=== PATIENT | female | born 1985 | race Hispanic/Latino ===

== ENCOUNTER 2017-12-21 05:19 | Emergency (ER) | payer OTHER ==
[2017-12-21] MEDS ORDERED: Sodium Chloride 0.9% 1,000 ML IV STA (05:36)
[2017-12-21] MEDS ORDERED: Morphine 4 MG/ML VIAL ONE (05:40)
[2017-12-21 06:17] LABS: ALB/GLOB RATIO 1.2 (1.0-2.1); ALBUMIN 4.4 g/dL (3.5-5.0); ALT/SGPT 53 U/L (9-52); AST/SGOT 30 U/L (14-36); BLOOD UREA NITROGEN 10 mg/dl (7-17); GFR AFRICAN-AMERICAN > 60; GFR NON-AFRICAN AMERICAN > 60
[2017-12-21 06:28] LABS: INR 1.1 (0.9-1.2); PARTIAL THROMBOPLASTIN TIME 29.5 Seconds (25.6-37.1); PROTHROMBIN TIME 11.9 Seconds (9.8-13.1)
[2017-12-21 06:36] LABS: BASO % 0.4 % (0.0-2.0); EOS % 0.1 % (0.0-4.0); HEMOGLOBIN 13.2 g/dL (12.0-16.0); LYMPH # 0.9 K/uL (1.0-4.3); LYMPH % 9.4 % (20.0-40.0); MEAN CELL VOLUME 87.1 fl (81.0-99.0); MEAN CORPUSCULAR HEMOGLOBIN 29.7 pg (27.0-31.0); MEAN CORPUSCULAR HGB CONC 34.1 g/dL (33.0-37.0); MEAN PLATELET VOLUME 8.4 fl (7.2-11.7); MONO # 0.3 K/uL (0.0-0.8); MONO % 3.3 % (0.0-10.0); NEUT # 8.7 K/uL (1.8-7.0); NEUT % 86.8 % (50.0-75.0); PLATELET COUNT 262 K/uL (130-400); RBC 4.45 Mil/uL (3.80-5.20); RED CELL DISTRIBUTION WIDTH 13.2 % (11.5-14.5)
--- NOTE | 2017-12-21 07:09 | ED PDOC ---
HPI: Female Pain Time Seen by Provider: 12/21/17 05:31 Chief Complaint (Nursing): Abdominal Pain Chief Complaint (Provider): Abdominal Pain History Per: Patient History/Exam Limitations: no limitations Onset/Duration Of Symptoms: Hrs (x 7) Additional Complaint(s): 32 year old female with and AGA 11 weeks presents to the ED complaining of vaginal bleeding and abdominal pain associated with nausea for 7 hours. Patient states she was diagnosed yesterday with demise and started on cytotec. She reports insertion of first dose at 2300. Patient denies any vomiting, diarrhea, fever, chest pain or shortness of breath. Past Medical History Reviewed: Historical Data, Nursing Documentation, Vital Signs Vital Signs: Last Vital Signs Temp 98.3 F 12/21/17 05:30 Pulse 72 12/21/17 05:30 Resp 18 12/21/17 05:30 BP 124/75 12/21/17 05:30 Pulse Ox 95 12/21/17 05:30 - Medical History PMH: No Chronic Diseases - Surgical History Surgical History: No Surg Hx - Family History Family History: States: Unknown Family Hx - Social History Current smoker - smoking cessation education provided: No Alcohol: None Drugs: Denies - Home Medications Home Medications: Ambulatory Orders Medication Instructions Recorded Acetaminophen with Codeine 1 tab PO Q6H PRN #10 tab 12/21/17 [Tylenol with Codeine No. 3 300 mg-30 mg] Ibuprofen [Motrin] 600 mg PO Q6H PRN #20 tab 12/21/17 - Allergies Allergies/Adverse Reactions: Allergies Allergy/AdvReac Type Severity Reaction Status Date / Time No Known Allergies Allergy Verified 12/21/17 05:29 Review of Systems ROS Statement: Except As Marked, All Systems Reviewed And Found Negative Constitutional: Negative for: Fever Cardiovascular: Negative for: Chest Pain Respiratory: Negative for: Cough Gastrointestinal: Positive for: Nausea, Abdominal Pain. Negative for: Vomiting , Diarrhea Genitourinary Female: Positive for: Vaginal Bleeding Physical Exam - Reviewed Nursing Documentation Reviewed: Yes Vital Signs Reviewed: Yes - Physical Exam Appears: Positive for: Uncomfortable Skin: Positive for: Normal Color, Warm, Dry Eye Exam: Positive for: Normal appearance, EOMI, PERRL ENT: Positive for: Normal ENT Inspection Neck: Positive for: Normal, Supple Cardiovascular/Chest: Positive for: Regular Rate, Rhythm. Negative for: Murmur Respiratory: Positive for: Normal Breath Sounds. Negative for: Respiratory Distress Gastrointestinal/Abdominal: Positive for: Normal Exam, Soft. Negative for: Tenderness Back: Positive for: Normal Inspection. Negative for: L CVA Tenderness, R CVA Tenderness Extremity: Positive for: Normal ROM Neurologic/Psych: Positive for: Alert, Oriented - Laboratory Results Result Diagrams: 12/21/17 05:45 12/21/17 05:45 - ECG O2 Sat by Pulse Oximetry: 95 (RA) Pulse Ox Interpretation: Normal Medical Decision Making Medical Decision Making: Initial Impression: 32 year old female with sever cramping and bleeding and recent cytotec. Initial Plan: --ABO/RH Type --B-HCG --CMP --CBC --PTT --Prothrombin Time --Toradol 30 mg --Morphine 4 mg --NaCl 1,000 ml IV --Zofran 4 mg --Urinalysis --Transvaginal US Time:0647 Patient is signed out to Dr. Richter. Scribe Attestation: Documented by oLri Santana, acting as a scribe for Raleigh Alcazar MD. Provider Scribe Attestation: All medical record entries made by the Scribe were at my direction and personally dictated by me. I have reviewed the chart and agree that the record accurately reflects my personal performance of the history, physical exam, medical decision making, and the department course for this patient. I have also personally directed, reviewed, and agree with the discharge instructions and disposition. Disposition - Clinical Impression Clinical Impression: Abdominal cramps - Disposition Referrals: Mary Kay Garcai Caraway [Outside] Disposition Time: 07:47 Condition: IMPROVED Additional Instructions: FOLLOW-UP WITH OB-GLASS CALIBRATOR WITHIN 2 DAYS FOR REEVALUATION. Prescriptions: Acetaminophen with Codeine [Tylenol with Codeine No. 3 300 mg-30 mg] 1 tab PO Q6H PRN #10 tab PRN Reason: Pain, Severe (8-10) Ibuprofen [Motrin] 600 mg PO Q6H PRN #20 tab PRN Reason: Pain, Moderate (4-7) Instructions: Acute Abdomen (Belly Pain), Misoprostol Forms: [employer] (Hungarian) Patient Signed Over To: Elana Richter
--- NOTE | 2017-12-21 07:25 | ED PDOC ---
- Laboratory Results Result Diagrams: 12/21/17 05:45 12/21/17 05:45 - ECG O2 Sat by Pulse Oximetry: 95 (RA) - Progress Re-evaluation Time: 12:30 Condition: Improved - Physician Consult Information Time Consulting Physican Contacted: 12:46 Physician Contacted: Laura Dash Outcome Of Conversation: Will evaluate patient. Pt can be discharged home. Disposition - Clinical Impression Clinical Impression: Abdominal cramps - POA Present On Arrival: None - Disposition Referrals: Mary Kay Weinstein [Outside] Disposition: Routine/Home Disposition Time: 13:20 Condition: IMPROVED Additional Instructions: FOLLOW-UP WITH OB-TAPPER SUPERVISOR WITHIN 2 DAYS FOR REEVALUATION. Prescriptions: Acetaminophen with Codeine [Tylenol with Codeine No. 3 300 mg-30 mg] 1 tab PO Q6H PRN #10 tab PRN Reason: Pain, Severe (8-10) Ibuprofen [Motrin] 600 mg PO Q6H PRN #20 tab PRN Reason: Pain, Moderate (4-7) Instructions: Acute Abdomen (Belly Pain), Misoprostol Forms: [id number] (Korean) Addendum Addendum: 12/21/17 07:00 Pt signed out [address] Dr[address] Alcazar pending ultrasound.
[2017-12-21 07:40] LABS: BANDS 1 % (0-2); LYMPHOCYTE 16 % (20-50); MONOCYTE 3 % (0-10); NEUTROPHIL 78 % (42-75); REACTIVE LYMPHOCYTES 2 % (0-0); TOTAL CELLS COUNTED 100
[2017-12-21 07:41] LABS: PLATELET ESTIMATE NORMAL (NORMAL)
[2017-12-21 11:48] LABS: URINE BACTERIA FEW (<OCC); URINE HYALINE CAST >20 /hpf (0-2); WBC CLUMPS MANY /hpf
[2017-12-21 12:12] LABS: URINE COLOR DARK RED (YELLOW)
[2017-12-21 12:13] LABS: PH,URINE 6.5 (5.0-8.0); URINE BILIRUBIN LA (NEGATIVE); URINE BLOOD LARGE (NEGATIVE); URINE CLARITY TU (Clear); URINE GLUCOSE (UA) 100 mg/dL (Normal)
[2017-12-21 12:14] LABS: URINE LEUKOCYTE ESTERASE LARGE Leu/uL (Negative); URINE PROTEIN >=300 mg/dL (NEGATIVE)
--- NOTE | 2017-12-21 12:27 | US ---
PROCEDURE: HISTORY: bleeding in preg COMPARISON: TECHNIQUE: FINDINGS: The uterus measures 9.3 x 5.4 x 4.5 centimeters. The endometrium is heterogeneous and echogenic measuring 4.5 x 2.4 x 1.8 centimeters. There is no evidence of intrauterine . Both ovaries have normal sonographic appearance. IMPRESSION: Thickened echogenic endometrium likely representing hemorrhage. No evidence of intrauterine . Ectopic is not excluded.
[2017-12-21 13:51] VITALS: BP 125/80; PULSE 75; RESP 16; TEMP 97.9
[2017-12-22 04:38] VITALS: O2SAT 95
== END 2017-12-21 13:51 | disposition home or self-care (01) ==
LOC: H.ER 05:19
DX: O26.891 Other specified pregnancy related conditions, first trimester (principal); Z3A.11 11 weeks gestation of pregnancy
CPT/HCPCS: 76830; 80053; 81003; 84702; 85025; 85610; 85730; 86850; 86900; 96361; 96374; 96375; 99285; J1885; J2270; J2405; J7040